=== PATIENT | male | born 1945 | race Hispanic/Latino ===

== ENCOUNTER 2019-05-28 21:04 | Emergency (ER) | payer SELFPAY ==
[2019-05-28] MEDS ORDERED: ATIVAN IM ONE (21:39)
--- NOTE | 2019-05-28 21:50 | Emergency Department Report ---
HPI - General Chief Complaint: Medical Clearance Time Seen by Provider: 05/28/19 21:20 - HPI HPI: 73-year-old male presents to the emergency department by EMS from his personal alf secondary to the complaint from the alf of the patient being combative and aggressive. I spoke to one of the staff from the alf who says that the patient has been going into other people's rooms, trying to bite and kick other people, yelling/cursing at staff and residents. The patient does have a history of Alzheimer's dementia. He was here one time about a year ago and records also showed he has a history of non-insulin dependent diabetes and questionable new onset seizures at that time. Currently the patient is AAO 0 but the alf says that this is often his baseline mentation and he was sent in secondary to the behavioral disturbances. ED Past Medical Hx - Social History Smoking Status: Never Smoker ED Review of Systems ROS: Stated complaint: AMS Other details as noted in HPI Comment: Unobtainable due to pts medical conditions Physical Exam - Physical Exam Vital Signs: Vital Signs 05/28/19 21:25 Temperature 98.3 F Pulse Rate 53 L Respiratory 18 Rate Blood Pressure 163/80 O2 Sat by Pulse 98 Oximetry Physical Exam: GENERAL: The patient is well-developed well-nourished. HENT: Normocephalic. Atraumatic. Patient has moist mucous membranes. EYES: Extraocular motions are intact. Pupils equal reactive to light bilaterally. NECK: Supple. Trachea is midline. CHEST/LUNGS: Clear to auscultation. There is no respiratory distress noted. HEART/CARDIOVASCULAR: Regular. There is no tachycardia. There is no murmur. ABDOMEN: Abdomen is soft, nontender. Patient has normal bowel sounds. There is no abdominal distention. SKIN: Skin is warm and dry. NEURO: The patient is awake but confused, AAO 0. Most likely consistent with history of dementia. Follows commands. 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 There is no limitation range of motion. ED Course Vital Signs 05/28/19 21:25 Temperature 98.3 F Pulse Rate 53 L Respiratory 18 Rate Blood Pressure 163/80 O2 Sat by Pulse 98 Oximetry ED Medical Decision Making - Lab Data Result diagrams: 05/28/19 21:48 05/28/19 21:48 - EKG Data -: EKG Interpreted by Me EKG shows normal: sinus rhythm, axis, intervals, QRS complexes (RBBB), ST-T waves Rate: bradycardia (48 bpm) - EKG Data When compared to previous EKG there are: previous EKG unavailable Interpretation: other (Sinus bradycardia rate 48, RBBB) - Medical Decision Making This patient was sent in from his personal alf secondary to some alleged behavioral disturbances. He doesn't history of Alzheimer's dementia. Since being in the emergency department, the patient does want to continually get up out of bed and has made multiple laps around the emergency department. However, he is often directable back to his bed he has displayed no behavioral disturbances otherwise here and has been perfectly pleasant with the ED staff. The patient is AAO 0 but when speaking to staff from his personal alf, this is his baseline mentation. Given that the complaint was behavioral disturbances, the patient does not appear to meet criteria to be made a 1013 or require inpatient psychiatric involuntary treatment. Patient's labs have been unremarkable and there does not appear to be any organic or metabolic reason for these alleged behavioral disturbances. However he does not appear to require inpatient medical admission either. He will be sent back to the personal alf encouragement to follow-up with the primary care physician or contact a social work nurse if there is concern for his current living situation or the need for a different type placement. - Differential Diagnosis dementia, UTI, electrolyte abnormalities Critical Care Time: No Critical care attestation.: If time is entered above; I have spent that time in minutes in the direct care of this critically ill patient, excluding procedure time. ED Disposition Clinical Impression: Hypertension Qualifiers: Hypertension type: essential hypertension Qualified Code(s): I10 - Essential (primary) hypertension Dementia Qualifiers: Dementia type: Alzheimer's disease Alzheimer's disease onset: unspecified onset Dementia behavioral disturbance: without behavioral disturbance Qualified Code(s): G30.9 - Alzheimer's disease, unspecified Disposition: DC-01 TO HOME OR SELFCARE Is pt being admited?: No Condition: Stable Instructions: Dementia (ED), Hypertension (ED) Additional Instructions: The patient has not had any behavioral disturbances while in our emergency department. Currently, he does not meet criteria for involuntary inpatient psychiatric admission. He should be brought for follow-up with his primary care physician. He should return to the emergency department with any worsening of his symptoms or with any acute distress. Referrals: Primary Care Provider, Your [Other] - 2-3 Days Time of Disposition: 05:31
[2019-05-28 22:03] LABS: Basophils # (Auto) 0.1 K/mm3 (0.0-0.1); Basophils % (Auto) 0.7 % (0.0-1.8); Eosinophils # (Auto) 0.1 K/mm3 (0.0-0.4); Eosinophils % (Auto) 1.3 % (0.0-4.3); Hematocrit 42.7 % (35.5-45.6); Hemoglobin 14.6 gm/dl (11.8-15.2); Lymphocytes # (Auto) 1.9 K/mm3 (1.2-5.4); Lymphocytes % (Auto) 18.6 % (13.4-35.0); Mean Corpuscular HGB Conc 34 % (32-34); Mean Corpuscular Volume 85 fl (84-94); Monocytes # (Auto) 0.7 K/mm3 (0.0-0.8); Monocytes % (Auto) 7.1 % (0.0-7.3); Platelet Count 208 K/mm3 (140-440); Red Blood Count 5.01 M/mm3 (3.65-5.03); Red Cell Distribution Width 15.4 % (13.2-15.2)
[2019-05-28 22:31] LABS: Alanine Aminotransferase 18 units/L (7-56); Albumin 4.2 g/dL (3.9-5); BUN/Creatinine Ratio 29; Blood Urea Nitrogen 32 mg/dL (9-20); Calcium 9.5 mg/dL (8.4-10.2); Hemolysis Index 5
[2019-05-28] MEDS ORDERED: ATIVAN IM STA (22:37)
[2019-05-29] MEDS ORDERED: BENADRYL PO ONE (02:09)
[2019-05-29 05:04] LABS: Amphetamine Screen,Urine PRESUMPTIVE NEGATIVE; Benzodiazepines Screen,Urine PRESUMPTIVE NEGATIVE; Cannabinoid Screen,Urine PRESUMPTIVE NEGATIVE; Cocaine Screen,Urine PRESUMPTIVE NEGATIVE; Methadone Screen,Urine PRESUMPTIVE NEGATIVE; Opiate Screen,Urine PRESUMPTIVE NEGATIVE
[2019-05-29 05:05] LABS: Bilirubin,Urine NEG (Negative); Blood,Urine NEG (Negative); Color,Urine Yellow (Yellow); Mucus,Urine FEW /HPF; Protein,Urine <15 mg/dL mg/dL (Negative); Urobilinogen,Urine < 2.0 mg/dL (<2.0)
[2019-05-29 06:27] VITALS: BP 135/86
== END 2019-05-29 07:00 | disposition home or self-care (01) ==
LOC: ED 21:04
DX: I10 Essential (primary) hypertension (principal); F03.90 Unspecified dementia, unspecified severity, without behavioral disturbance, psychotic disturbance, mood disturbance, and anxiety
CPT/HCPCS: 36415; 80053; 80307; 81001; 82140; 84443; 84484; 85025; 93005; 93010; 96372; 99284; J2060; 80320; G0480